=== PATIENT | female | born 1995 | race Caucasian/White ===

== ENCOUNTER 2023-09-08 00:55 | Emergency (ER) | payer OTHER, SELFPAY ==
[2023-09-08 01:04] VITALS: BP 110/76
--- NOTE | 2023-09-08 01:25 | ED.SKININJ ---
HPI-Injury
General
Chief Complaint: Skin Surface Trauma
Source: patient
Exam Limitations: none
Time Seen by Provider: 09/08/23 01:11
Travel History
Have you had any contact with someone who has COVID-19?: No
Do you have any symptoms of coronavirus? Fever > 100 degrees, chills, cough, shortness of breath, sore throat, loss of taste or smell, muscle aches, or headache?: No
History of Present Illness-Injury
Is this injury a work related problem?: Yes
Is pt an associate of [facility]?: No
Initial Injury comments:
This is a 28 year old female that comes in with c/o laceration to the right third finger. States that she was working and she was lifting a pot up to put in on the rack. Sssstates that it started to fall and she went to catch it and she cut her
finger. States that this was a clean pot. States that her Tetanus was about 4 years ago. Denies any fever, chills, nausea, vomiting, diarrhea.
Past History
Past History
ED Past Medical History: Psychiatric (Anxiety, Depression) and Other (Macular degeneration. RBBB)
ED Past Surgical History: None
Social History
Tobacco: Non-smoker
Alcohol: Occasional
Personal: Single
Employment: Employed
Review of Systems
Review of Systems
All Other Systems: ROS reviewed and negative except as documented in HPI and ROS
Constitutional: Reports no symptoms; Denies fever or chills
EENT: Reports no symptoms
Respiratory: Reports no symptoms
Cardiac: Reports no symptoms
ABD/GI: Reports no symptoms
: Reports no symptoms
Musculoskeletal: Reports no symptoms
Skin: Reports other (Cut on the right third finger)
Neurological: Reports no symptoms
Psychiatric: Reports no symptoms
Skin Exam
Laceration
Right Third Finger:
Length in cm: 2
Orientation: horizontal
Type of Laceration: simple
Any active bleeding?: no active bleeding
Distal skin color and temperature: normal-warm & good color
Normal distal neurovascular exam: Yes
Range of motion: full
Phy Exam
General Physical Exam
General Presentation: well appearing and no apparent distress
General age: appears stated age
General Skin: warm and dry
General Habitus: normal
General Mental: alert
General Hydration: appears well hydrated
Eye Exam
Eye Exam: EOMI
Skin Exam
Skin Exam: normal color, warm/dry, no rash, no petechia and laceration (Right third proximal finger)
Psychiatric Exam
Psychiatric Exam: normal mood/affect
Course
Vital Signs
Initial and Last Documented VS:
Initial Vital Signs
Temp Pulse Resp BP Pulse Ox
98.9 F 68 20 110/76 97
09/08/23 01:04 09/08/23 01:04 09/08/23 01:04 09/08/23 01:04 09/08/23 01:04
Last Documented Vital Signs
Temp Pulse Resp BP Pulse Ox
98.9 F 68 20 110/76 97
09/08/23 01:04 09/08/23 01:04 09/08/23 01:04 09/08/23 01:04 09/08/23 01:04
Procedures
Laceration Closure
Right Third Finger:
Status of Wound: clean
Size of Wound in cm: 2
Description of Wound Edges: sharp
Preparation: cleaned with saline
Wound exploration: explored to base- no FB
Type of Closure: Dermabond-skin glue
MDM/Problems Addressed
Differential Diagnosis Includes:
Laceration
MDM/Problems Addressed:
This is a 28 year old female that comes in with c/o laceration to the right third finger. States that she was putting a pot away and it started to fall. States that she went to grab the pot and cut her finger
Laceration was glued and steri strips applied. Patient will keep her hands dry for the next 24 hours. Then she can gently wash over the area. Patient to return with any concerns.
*Critical Care Note
Total Time (30-74mins, 75-104mins- exclusive of procedures): Not Applicable
ED Attending Note
-
Portions of this chart may have been created with voice recognition software.� Occasional wrong word or��sound alike� substitutions may have occurred due to the inherent limitations of voice recognition software.
Discharge Plan
Departure
Patient Disposition: Home (Routine Discharge)
Date of Disposition: 09/08/23
Time of Disposition: :38
Patient with high blood pressure during this ER visit?: No
Condition: Good
Covid-19: Not Applicable
Discharge Problem:
Finger laceration
Instructions: Laceration Repair With Glue (DC)
Prescriptions:
No Action
Aspir-81
1 tab PO DAILY
Numaqula Vitamin
3 tab PO DAILY
Prozac
25 mg PO DAILY
Activity Restrictions/Additional Instructions:
As discussed, your laceration was repaired with glu. Please keep your hand dry for the next 24 hours. The glue and steri strips will fall off in about 5-7 days. You may gently wash over the area after 24 hours but please do not submerge in water.
IF YOU HAVE ANY REDNESS, DRAINAGE OR YOU HAVE ANY OTHER CONCERNS PLEASE RETURN TO THE EMERGENCY ROOM.
Interventions
Interventions:
*Risk Screen - Suicide Last Done: 09/08/23 01:04
*General Assessment Last Done: 09/08/23 01:04
*Neglect/Abuse Screening Last Done: 09/08/23 01:04
ED- Fall Risk Assessment Last Done: 09/08/23 01:04
*ED COVID-19 Vaccine History Last Done: 09/08/23 01:04
== END 2023-09-08 01:50 | disposition home or self-care (01) ==
LOC: EMR 00:55
PROVIDERS: EMERGENCY PHYSICIAN Student in an Organized Health Care Education/Training Program
DX: S61.212A Laceration without foreign body of right middle finger without damage to nail, initial encounter (principal); W45.8XXA Other foreign body or object entering through skin, initial encounter; F41.8 Other specified anxiety disorders; H35.30 Unspecified macular degeneration; I45.10 Unspecified right bundle-branch block
CPT/HCPCS: 99282; 12001

== ENCOUNTER 2024-01-15 13:31 | Emergency (ER) | payer SELFPAY ==
[2024-01-15 13:36] VITALS: BP 108/69
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
== END 2024-01-15 17:30 | disposition home or self-care (01) ==
LOC: EMR 13:31
PROVIDERS: EMERGENCY PHYSICIAN Emergency Medicine
DX: S09.90XA Unspecified injury of head, initial encounter (principal); S16.1XXA Strain of muscle, fascia and tendon at neck level, initial encounter; V43.52XA Car driver injured in collision with other type car in traffic accident, initial encounter; Y92.410 Unspecified street and highway as the place of occurrence of the external cause; F32.A Depression, unspecified; Q21.12 Patent foramen ovale; F41.9 Anxiety disorder, unspecified
CPT/HCPCS: 99284; 70450; 72125

== ENCOUNTER 2024-06-09 21:30 | Emergency (ER) | payer BC, SELFPAY ==
[2024-06-09 21:40] VITALS: BP 115/74
[2024-06-09 23:49] VITALS: BP 122/70
[2024-06-10 01:45] LABS: % Basophils 1.1 % (0-2); % Eosinophils 2.8 % (0-6); % Immature Granulocytes 0.4 % (0-0.5); % Lymphocytes 33.2 % (20.5-51.1); % Monocytes 11.2 % (1.7-9.3); % Neutrophils 51.3 % (42.2-75.2); Absolute Basophils 0.1 10^3/uL (0-0.2); Absolute Eosinophils 0.2 10^3/uL (0-0.7); Absolute Lymphocytes 2.5 10^3/uL (1.2-3.4); Absolute Monocytes 0.8 10^3/uL (0.1-0.6); Absolute Neutrophils 3.9 10^3/uL (1.4-6.5); Hemoglobin 13.1 g/dL (12.0-16.0); Mean Corp Hgb Conc. 35.4 g/dL (33.0-37.0); Mean Corpuscular Hgb 31.2 pg (27.0-31.0); Mean Corpuscular Volume 88.1 fL (81.0-99.0); Mean Platelet Volume 9.3 fL (7.4-10.4); Nucleated Red Blood Cells % 0 %; Platelet Count 209 10^3/uL (130-400); Red Cell Dist. Width 12.3 % (11.5-14.5); White Blood Cell Count 7.5 10^3/uL (4.8-10.8)
[2024-06-10 02:00] VITALS: BP 95/53
[2024-06-10 02:30] VITALS: BP 95/64
[2024-06-10 02:32] LABS: D-Dimer 0.48 ug/mlFEU (0.00-0.50)
[2024-06-10 02:34] LABS: HCG, Serum Qualitative Screen Negative
[2024-06-10 02:43] LABS: ALT (SGPT) 17 U/L (0-35); AST (SGOT) 25 U/L (14-36); Albumin 4.3 g/dl (3.5-5.0); Alkaline Phosphatase 45 U/L (38-126); Blood Urea Nitrogen 22 mg/dl (7-17); Calcium 8.9 mg/dl (8.4-10.2); Carbon Dioxide 24 mmol/L (22-30); Chloride 105 mmol/L (98-107); Glucose 80 mg/dl (70-99); Potassium 3.9 mmol/L (3.5-5.1); Sodium 139 mmol/L (135-145); Total Bilirubin 0.6 mg/dl (0.2-1.3); Total Protein 6.9 g/dl (6.3-8.2); eGFR > 60.00
[2024-06-10 02:44] LABS: Troponin I < 0.012 ng/ml
[2024-06-10 03:00] VITALS: BP 98/63
--- NOTE | 2024-06-10 03:05 | ED.GENMED ---
History of Present Illness
General
Chief Complaint: Chest Pain
Source: patient
Exam Limitations: none
Time Seen by Provider: 06/09/24 23:51
History of Present Illness
History of Present Illness:
29-year-old female presents with the onset of chest discomfort today getting worse throughout the day. The pain is on the left side occasionally is made worse with deep breathing. She also started Adderall about 5 days ago. She has been taking
this 2 times a day. She spoke with her psychiatrist and they advised she come here for evaluation. She does have a patent foramen ovale
Past History
Past History
ED Past Medical History: Psychiatric (Anxiety, Depression) and Other (Macular degeneration. RBBB)
ED Past Surgical History: None
Social History
Tobacco: Non-smoker
Alcohol: Occasional
Personal: Single
Employment: Employed
Phy Exam
Physical Exam
Physical Exam:
General: Well-appearing female no acute respiratory distress
HEENT: Normocephalic atraumatic
Heart: Regular rate and rhythm no murmur
Lungs: Clear no wheeze
Extremities: No cyanosis
Scores
Heart Score for Chest Pain Patients
STEMI patient?: No
History: Slightly or Non-Suspicious
ECG: Normal
Age: </= 45 years
Risk Factors: No Risk Factors
Troponin: </= Normal Limit
Heart Score for Chest Pain Patients: 0
Heart Score Risk: 2.5% MACE over next 6 weeks
Course
Orders/Labs/Results
Orders:
Orders
06/09/24 21:33
EKG [Electrocardiogram (*1)] Urgent
Reason for Study: Bradycardia / Tachycardia
Other Reason for Exam: Chest pain
EKG- Treatment ONCE
06/10/24 00:09
Test Result ONCE
06/10/24 01:28
Complete Blood Count/With Diff Urgent
D-Dimer Urgent
06/10/24 02:10
Comprehensive Metabolic Panel Urgent
D-Dimer Urgent
HCG, Serum Qualitative Screen Urgent
Troponin I Urgent
06/10/24 02:59
CR Chest - 2 Views Urgent
Comment:
Reason For Exam: chest pain
Abnormal Lab Results
06/10/24 06/10/24
01:28 02:10
MCH 31.2 H pg
(27.0-31.0)
Absolute Monos (auto) 0.8 H 10^3/uL
(0.1-0.6)
Monocytes % 11.2 H %
(1.7-9.3)
BUN 22 H mg/dl
(7-17)
06/10/24 01:28
06/10/24 02:10
Vital Signs
Initial and Last Documented VS:
Initial Vital Signs
Temp Pulse Resp BP Pulse Ox
99.1 F 70 18 115/74 98
06/09/24 21:40 06/09/24 21:40 06/09/24 21:40 06/09/24 21:40 06/09/24 21:40
Last Documented Vital Signs
Temp Pulse Resp BP Pulse Ox
99.1 F 89 13 98/63 97
06/09/24 21:40 06/10/24 03:00 06/10/24 03:00 06/10/24 03:00 06/10/24 03:00
MDM/Problems Addressed
Differential Diagnosis Includes:
Chest pain. Differential could include PE versus ACS versus musculoskeletal chest pain versus medication adverse reaction
EKG shows sinus rhythm without ischemic changes. D-dimer within normal limits troponins undetectable. Chest x-ray pending.
If negative chest x-ray patient is low risk. Stable for discharge with atypical chest pain
*Critical Care Note
Total Time (30-74mins, 75-104mins- exclusive of procedures): Not Applicable
Update Note
Update Note:
Chest x-ray negative for pneumothorax pneumonia or pleural effusion no acute finding noted on chest x-ray. This is personally visualized by this provider. Patient with atypical chest pain. Stable for discharge recommend return if worse
ED Attending Note
-
Portions of this chart may have been created with voice recognition software.� Occasional wrong word or��sound alike� substitutions may have occurred due to the inherent limitations of voice recognition software.
Discharge Plan
Departure
Patient Disposition: Home (Routine Discharge)
Date of Disposition: 06/10/24
Time of Disposition: 03:10
Patient with high blood pressure during this ER visit?: No
Discharge Problem:
Chest pain
Prescriptions:
No Action
Aspir-81
1 tab PO DAILY
Prozac
25 mg PO DAILY
Referrals:
Yanely Nunez CRNP [Family Provider] -
Activity Restrictions/Additional Instructions:
Please return here for worsening symptoms. You may use ibuprofen or Tylenol for pain. Follow-up with your treating physicians
Interventions
Interventions:
*Risk Screen - Suicide Last Done: 06/09/24 21:40
*Neglect/Abuse Screening Last Done: 06/09/24 21:40
ED- Fall Risk Assessment Last Done: 06/10/24 01:38
ED- Cardiac Assessment Last Done: 06/10/24 01:38
ED- Pulmonary Assessment Last Done: 06/10/24 01:38
Discharge Date and Time
Print Language: PORTUGUESE
== END 2024-06-10 03:30 | disposition home or self-care (01) ==
LOC: EMR 21:30
PROVIDERS: Physician Assistant; EMERGENCY PHYSICIAN Student in an Organized Health Care Education/Training Program; FAMILY PHYSICIAN Registered Nurse
DX: R07.89 Other chest pain (principal); Q21.12 Patent foramen ovale
CPT/HCPCS: 99285; 71046; 80053; 84484; 84703; 85025; 85379; 93005